=== PATIENT | male | born 1950 | race Caucasian/White ===

== ENCOUNTER 2021-09-22 20:49 | Emergency (ER) | payer MEDICARE, MEDICAID ==
[2021-09-22] MEDS ORDERED: Glucagon,Human Recombinant 1 MG Vial IM ONE (21:05)
[2021-09-22] MEDS ORDERED: Sodium Chloride 0.9% 10 ML Syringe FLUSH PRN (21:06)
[2021-09-22] MEDS ORDERED: Dextrose 5%-0.45% NaCl 1,000 ML IV SCH (21:15)
[2021-09-22] MEDS ORDERED: Dextrose 5%-0.9% NaCl 1,000 ML IV SCH (21:45)
[2021-09-22] MEDS ORDERED: Pantoprazole 40 MG Vial IVPUSH ONE (22:27)
[2021-09-23] MEDS ORDERED: Ondansetron 4 MG in Sodium Chloride 0.9% 100 ML IV ONE (00:25)
[2021-09-23] MEDS ORDERED: Ondansetron 4 MG/2 ML SDV IVPUSH ONE (00:52)
== END 2021-09-23 02:00 | disposition short-term general hospital (02) ==
LOC: VM.ED 20:49
DX: T18.128A Food in esophagus causing other injury, initial encounter (principal); K21.9 Gastro-esophageal reflux disease without esophagitis; F17.210 Nicotine dependence, cigarettes, uncomplicated
CPT/HCPCS: 71046; 82947; 96361; 96372; 96374; 96375; 99284; 99285-25; C9113; J1610; J2405; J7042

== ENCOUNTER 2024-05-10 11:35 | Day surgery (SDC) | payer MEDICARE, MEDICAID ==
[2024-05-10] MEDS: Lactated Ringers 1,000 ML IV SCH (11:50)
[2024-05-10] MEDS ORDERED: fentaNYL 100 MCG/2 ML SDV ONE (12:59)
[2024-05-10] MEDS ORDERED: Midazolam 1 MG/ML 2 ML SDV ONE (13:00)
[2024-05-10] MEDS ORDERED: Propofol 200 MG/20 ML SDV ONE (13:00)
== END 2024-05-10 15:21 | disposition home or self-care (01) ==
LOC: VM.SDS 11:35
PROVIDERS: ATTEND Family Medicine
DX: Z12.11 Encounter for screening for malignant neoplasm of colon (principal); R19.5 Other fecal abnormalities; D12.6 Benign neoplasm of colon, unspecified; K63.5 Polyp of colon; K57.30 Diverticulosis of large intestine without perforation or abscess without bleeding; I10 Essential (primary) hypertension; F17.210 Nicotine dependence, cigarettes, uncomplicated
CPT/HCPCS: 00811; 88305; 99100; J2250; J2704; J3010; J7120